=== PATIENT | male | born 1990 | race Caucasian/White ===

== ENCOUNTER 2016-08-27 00:54 | Emergency (ER) | payer OTHER ==
[~2016-08-27] VITALS: Ht 180.3 cm; Wt 79.4 kg
[~2016-08-27 00:54] MED LIST: ACYCLOVIR 400M400 MG PO; AMOXICILLIN 50500 MG PO; EC NAPROSYN500 MG PO; FLEXERIL10 MG PO; LORTAB 5/500 501 TAB PO; MULTIVITAMIN1 TA1 PO; NOMEDS
[2016-08-27] MEDS ORDERED: PROAIR HFA0.09 MG/AC IH (01:06)
[2016-08-27 01:31] LABS: HEMOGLOBIN 15.8 g/dL (14.1-18.0); LYMPH # 0.5 K/mm3 (0.7-4.5); LYMPH % 6.5 % (10-50)
[2016-08-27 01:36] LABS: STREP SCREEN (RAPID) NEGATIVE
--- NOTE | 2016-08-27 02:01 | Emergency Room Report ---
History of Present Illness Time Seen by MD Hardy Presenting Problem in Triage Pt arrived:Walked Presenting Problem:PT C/O VOMITING X 3, WITH FEVER, CHILLS, SORE THROAT X 1 DAY. PT DENIES DIARRHEA, DENIES PAIN. PT RPTS HE IS UNSURE IF HIS LUNCH FROM YESTERDAY ([place]) IS WHAT INITIALLY MADE HIM VOMIT. PT RPTS FEELING FATIGUED SINCE YESTERDAY, UNABLE TO SLEEP TONIGHT DUE TO VOMITING. PT ALSO RPTS HE WAS TOLD HE HAD THE FLU TWO WEEKS AGO BUT DID NOT TAKE MEDICATION. 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 Y Clinical Suspician of Infection? N Mental Status: 1 - Regular (Normal Baseline) Sepsis Risk:Possible Sepsis Risk Have you (or family members/close friends) recently traveled outside the [place]? N If Yes, where/when: Have you had exposure to infectious disease within the past month? N TB? Other? Specify: Source patient, RN notes reviewed, family, old records Exam Limitations no limitations Comment vomiting with achey and fever over the last few days with no rash or diarrhea Cardiac Chest Pain Chest pain indicative of cardiac No Timing/Duration this evening Severity moderate ALLERGIES Coded Allergies: No Known Allergies (08/27/16) Home Medications Reported Medications Albuterol Sulfate (Proair Hfa) 1 PUFF IH Q6HP PRN ASTHMA #9 History Medical History General CAD? No Angina: No MD: No Hypertension? No Hyperlipidemia? No CHF? No DVT? No PE? No COPD? No Asthma? Yes Anemia? No GERD? No Gastric ulcers? No GI Bleed? No Hernia? No Thyroid Problems? No Hypothyroidism? No CVA? No Seizures? No Diabetes? No Renal Insuffiency? No End Stage Renal Disease? No UTI? No Stones? No BPH? No GB Disease: No Nephritic Syndrome? No Asplenia? No Hepatitis? No Sickle Cell Disease? No Arthritis? No Migraines? No Cataracts? No Glaucoma? No MRSA? No HIV? No TB? No Anxiety? No Depression? No Cancer? No Immunization Hx DT/Tetanus 1-4 YRS Surgical Hx Previous Surgery?N Social History Smoking Hx Smoker: Light Tobacco Smoker Tobacco: Yes Type Cigarettes Packs/day < 1 Pack Alcohol Alcohol: Yes Drugs none Review of Systems All Other Systems Reviewed and Negative Constitutional see HPI, denies fever, other Eyes denies drainage ENT throat pain. denies: ear pain, epistaxis, throat swelling. Respiratory denies cough, denies shortness of breath, denies wheezing Cardiovascular denies chest pain, denies palpitations, denies syncope Gastrointestinal see HPI, abdominal pain, nausea, vomiting Genitourinary denies: dysuria, frequency, hesitancy, hematuria. Musculoskeletal denies back pain, denies joint pain, denies joint swelling, denies neck pain Skin denies rash Psychiatric/Neurological denies headache, denies seizure Physical Exam Vital Signs Vital Signs Date Time Temp Pulse Resp B/P Pulse O2 O2 Flow FiO2 Ox Delivery Rate 08/27 0241 98.8 87 20 132/67 97 08/27 0100 98.8 95 20 139/75 97 - WBC >12,000 or <4,000 or 10% bands? 2 or more SIRS Criteria Met? B/P:132/67 MAP:96 Creatinine >2.0? UA output<0.5ml/kg/hr for 2 hrs? Platelet count >100,000? Lactate >2.0mmol/1? INR >1.2 or PTT > than 60 sec? Evidence of Organ Dysfunction? Provider documented clinical suspician of infection? N Sepsis Criteria Count: 2 Sepsis Risk: Possible Sepsis Risk General Appearance no apparent distress Eye Exam - bilateral eye PERRL, bilateral eye EOMI Ear, Nose, Throat normal ENT inspection Neck supple Respiratory Status No: respiratory distress. Lung Sounds bilateral: lungs clear. 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 No Results/Orders Laboratory Tests 08/27/16 0212: Opiates Screen NEGATIVE, Urine Methadone Screen NEGATIVE, Barbiturates NEGATIVE, Phencyclidine Screen NEGATIVE, Amphetamines Screen NEGATIVE, Benzodiazepines Screen NEGATIVE, Cocaine Screen NEGATIVE, Marijuana (THC) Screen NEGATIVE, Urine Color YELLOW, Urine Appearance CLEAR, Urine pH 8.5, Ur Specific [place] 1.015, Urine Protein NEGATIVE, Urine Ketones NEGATIVE, Urine Blood NEGATIVE, Urine Nitrate NEGATIVE, Urine Bilirubin NEGATIVE, Urine Urobilinogen 0.2, Ur Leukocyte Esterase NEGATIVE, Urine RBC OCC, Urine WBC OCC, Amorphous Sediment 1+, Urine Bacteria 1+, Urine Glucose NEGATIVE 08/27/16 0110: Sodium 140, Potassium 3.8, Chloride 100, Carbon Dioxide 33 H, BUN 15, Creatinine 1.1, Estimated Creat Clear 113, Estimated GFR (MDRD) 80, Glucose 109 H, Calcium 8.9, Total Bilirubin 0.7, AST 20, ALT 39, Alkaline Phosphatase 74, Total Protein 7.5, Albumin 4.1, Globulin 3.4 H, Albumin/Globulin Ratio 1.2, WBC 8.4, RBC 4.84, Hgb 15.8, Hct 44.8, MCV 92.6, RDW 12.4, Plt Count 192, MPV 6.4 L , Gran % 86.0 H, Gran # 7.2, Total Counted 100, Lymphocytes % 6.5 L, Monocytes % 6.9, Eosinophils % 0.6, Basophils % 0.1, Neutrophils 89 H, Lymphocytes ( Manual) 5 L, Lymphocytes # 0.5 L, Monocytes (Manual) 4, Monocytes # 0.6, Eosinophils # 0.1, Eosinophils # (Manual) 2, Basophils # 0.0, Platelet Estimate NORMAL, Anisocytosis 1+, PUBS MCHC 35.3, MCH 32.6 H, Influenza Type A Ag NOT DETECTED, Influenza Type B Ag NOT DETECTED Current Medication Orders Sig/Bernie Start time Last Medication Dose Route Stop Time Status Admin Famotidine 20 MG ONCE ONE 08/27 329 AC IV 08/27 330 Metoclopramide HCl 10 MG ONCE ONE 08/27 329 AC IVP 08/27 330 Promethazine HCl 12.5 MG ONCE ONE 08/27 329 AC IV 08/27 330 Sodium Chloride 8 ML ONCE ONE 08/27 329 AC IV 08/27 330 Sodium Chloride 25 ML ONCE ONE 08/27 329 AC IV 08/28 343 Sodium Chloride 1,000 ML .Q1H1M 08/27 214 DC 08/27 IV 04/12 0315 0215 Sodium Chloride 10 ML PRN PRN 08/27 0215 AC IV 08/28 0214 Sodium Chloride 1,000 ML .STK-MED ONE 08/27 021 DC IV Ondansetron HCl 4 MG ONCE ONE 08/27 0130 DC 08/27 IV 08/27 013 0128 Sodium Chloride 10 ML PRN PRN 08/27 0130 AC IV 08/28 0119 Sodium Chloride 1,000 ML .Q1H1M 08/27 0130 DC 08/27 IV 08/27 0230 0128 Sodium Chloride 10 ML PRN PRN 08/27 0130 AC IV 08/28 0125 Ondansetron HCl 0 .STK-MED ONE 08/27 012 DC .ROUTE Sodium Chloride 1,000 ML .STK-MED ONE 08/27 125 DC IV Orders Procedure Date/time Status URINALYSIS/COMPLETE 08/27 0201 Complete DRUG ABUSE SCREEN (TRIAGE) 08/27 020 Complete IV SALINE LOCK 08/27 011 Active STREP SCREEN THROAT 08/27 011 Complete INFLUENZA A&B ANTIGENS 08/27 011 Complete CBC WITH AUTO DIFF 08/27 118 Complete CHEM 12 PROFILE 08/27 118 Complete CULTURE, THROAT 08/27 109 Active DIFFERENTIAL-WBC 08/27 011 Complete Departure Departure Time of Disposition 0320 Disposition DC Home or Self Care(routine) Clinical Impression Primary Impression: GASTRODUODENITIS, UNSPECIFIED, WITHOUT BLEEDING Condition STABLE Patient Instructions DI for Vomiting -- Adult Additional Instructions fluids and use meds and see pcp for follow up Discharge Counseling Counseled pt/family regarding diagnosis, test results, medications/RX, follow up needs ED Critical Care Critical Care No at 0325
[2016-08-27 02:20] LABS: URINE BILIRUBIN - DIPSTICK NEGATIVE (NEG); URINE BLOOD NEGATIVE (NEG)
[2016-08-27 02:31] LABS: NEUTROPHILS 89 % (42-76)
[2016-08-27 02:31] LABS: AMPHETAMINES/METAMPHETAMINES NEGATIVE ng/mL (<1000)
[2016-08-27 03:42] VITALS: BP 106/56
== END 2016-08-27 03:48 | disposition home or self-care (01) ==
LOC: ER 00:54
PROVIDERS: Emergency Medicine
DX: K29.90 Gastroduodenitis, unspecified, without bleeding (principal); J45.909 Unspecified asthma, uncomplicated; Z79.51 Long term (current) use of inhaled steroids
CPT/HCPCS: J2405